=== PATIENT | female | born 1975 | race African-American/Black ===

== ENCOUNTER 2019-01-29 06:32 | Day surgery (SDC) | payer MEDICAID ==
[~2019-01-29] VITALS: Ht 167.6 cm; Wt 78.0 kg
[2019-01-29] MEDS ORDERED: BUPIVACAINE HCL/PF 0.5% (5MG/ML) 10ML ONE (07:17)
[2019-01-29] MEDS ORDERED: SKIN ADHESIVE 0.7 GM EA TOP ONE (07:17)
[2019-01-29] MEDS ORDERED: LACTATED RINGERS 1,000 ML IV SCH (08:00)
[2019-01-29 08:11] LABS: UCG SCREEN NEGATIVE
[2019-01-29 08:19] LABS: INR 0.9; PARTIAL THROMBOPLASTIN TIME 28.9 sec (23.4-31.0); PROTHROMBIN TIME 9.6 sec (9.6-11.0)
[2019-01-29] MEDS ORDERED: ROCURONIUM BROMIDE 10MG/ML VIAL 5ML IV ONE (09:26)
[2019-01-29] MEDS ORDERED: SUCCINYLCHOLINE CHLORIDE 200MG/10ML IV ONE (09:26)
[2019-01-29] MEDS ORDERED: MIDAZOLAM HCL 2 MG/2 ML VIAL ONE (09:26)
[2019-01-29] MEDS ORDERED: FENTANYL CITRATE/PF 50MCG/ML 2ML VIAL ONE ×3 (09:26→10:31)
[2019-01-29] MEDS ORDERED: CEFAZOLIN SODIUM 1000MG/VIAL ONE (09:26)
[2019-01-29] MEDS ORDERED: SODIUM CHLORIDE 0.9% 10ML VIAL ONE (09:26)
[2019-01-29] MEDS ORDERED: LIDOCAINE HCL/PF 1% 10 MG/ML 5ML VIAL ONE (09:26)
[2019-01-29] MEDS ORDERED: NEOSTIGMINE METHYLSULFATE 1MG/ML 10 ML VIAL ONE (09:26)
[2019-01-29] MEDS ORDERED: PROPOFOL 200MG/20ML VIAL IV ONE (09:26)
[2019-01-29] MEDS ORDERED: GLYCOPYRROLATE 0.2 MG/ML 2ML VIAL ONE ×2 (09:26→10:00)
[2019-01-29] MEDS ORDERED: ONDANSETRON HCL 4MG/2ML INJ ONE (09:26)
[2019-01-29] MEDS ORDERED: METOCLOPRAMIDE HCL 10MG/2ML VIAL ONE (09:26)
[2019-01-29] MEDS ORDERED: SODIUM CHLORIDE 0.9% 1,000 ML IV ONE (10:49)
[2019-01-29] MEDS ORDERED: HYDROMORPHONE HCL/PF 2MG/ML CPJ IV PRN (11:00)
[2019-01-29] MEDS ORDERED: MORPHINE SULFATE 2 MG/ML CPJ (NOT FOR IM USE) IV PRN (11:00)
[2019-01-29] MEDS ORDERED: HYDROMORPHONE HCL/PF 2MG/ML CPJ IV SCH (11:00)
[2019-01-29] MEDS ORDERED: MEPERIDINE HCL/PF 25MG/ML CPJ IV PRN ×2 (11:00)
[2019-01-29] MEDS ORDERED: ONDANSETRON HCL 4MG/2ML INJ IV PRN ×2 (11:00)
[2019-01-30] MEDS ORDERED: DEXT 5%/0.45% NACL KCL 20MEQ/L 1,000 ML IV SCH (12:00)
== END 2019-01-29 14:00 | disposition home or self-care (01) ==
LOC: OR 06:32
PROVIDERS: ATTEND Specialist
DX: Z30.2 Encounter for sterilization (principal); Z98.890 Other specified postprocedural states; Z88.8 Allergy status to other drugs, medicaments and biological substances; Z79.899 Other long term (current) drug therapy
CPT/HCPCS: 36415; 58661; 81025; 85610; 85730; 88302; J0330; J0690; J2250; J2405; J2704; J2710; J2765; J3010; J3490